=== PATIENT | male | born 1945 | race Caucasian/White ===

== ENCOUNTER 2019-04-10 13:21 | Day surgery (SDC) | payer MEDICARE ==
--- NOTE | 2019-04-10 08:12 | History and Physical - [facility] ---
CHIEF COMPLAINT/HISTORY OF CHIEF COMPLAINT: This patient presents with a history of an intractable lumbar radiculopathy with lumbar spinal stenosis and neurogenic intermittent claudication. His treatment history has been extensive. Physical therapy, biomechanical treatments, and pain clinic treatments have not helped. Surgical evaluation in the past has suggested no surgery. He has had several years of unsuccessful treatments without relief. His diagnostics showed diffuse spondylitic change with lumbar spinal stenosis at L3-L4 and L4-L5. His symptom pattern includes lower extremity pain which is relieved by forward flexing and sitting. Due to the failure of therapy he is here for interspinal spacer placement at L3-L4 and L4-L5. PAST MEDICAL HISTORY: Hypertension, cardiovascular disease, cardiac arrhythmia, and hypothyroidism. PAST SURGICAL HISTORY: None given. MEDICATIONS ON ADMISSION: List to be provided. ALLERGIES: PENICILLIN. FAMILY/PSYCHOSOCIAL HISTORY: None given. SYSTEMS REVIEW: The patient is appropriate in no acute distress. The remainder of the systems review is noted. PHYSICAL EXAMINATION: Height is 6'1", weight is 200 pounds. No vital signs. HEENT: Within normal limits. LUNGS: Clear. HEART: Rapid and regular. ABDOMEN: Nontender. MUSCULOSKELETAL: Examination of the musculoskeletal system shows pain and tenderness in the lower extremities. Mild motor and sensory abnormalities. No assistive device used for ambulation. NEUROLOGIC: Cranial nerves are intact. IMPRESSION: 1. LUMBAR RADICULOPATHY, ICD-10 CODE M54.16 AND M54.17. 2. LUMBAR SPINAL STENOSIS WITH NEUROGENIC INTERMITTENT CLAUDICATION, ICD-10 CODE M48.062. PLAN: The patient is here on an outpatient basis for interspinal spacer by Verteflex at L3-L4 and L4-L5. The potential risks, side effects and complications have all been reviewed and discussed. The patient understands and agrees. He has been put in contact with a clinical specialist from the tool machine set up operator and was also explained the procedure. cc: Dr. Andrew Rob JOB NUMBER: [id number] MTDD
[~2019-04-10 13:21] MED LIST: ACETAMINOPHEN 1,000 MG/100 ML BTL IVPB ONE; CLINDAMYCIN 600MG/50ML PREMIX 600 MG/50 ML BAG IVPB ONE; FAMOTIDINE 20MG TABLET PO ONE; MECLIZINE 25 MG TABLET PO ONE; METOCLOPRAMIDE 10 MG TABLET PO ONE
[2019-04-10] MEDS ORDERED: FENTANYL PF 100MCG/2ML VIAL IV ONE (13:22)
[2019-04-10] MEDS ORDERED: LIDOCAINE 2% MDV (20MG/ML) 20ML VIAL IV ONE (13:22)
[2019-04-10] MEDS ORDERED: PHENYLEPHRINE HCL 10 MG/ML VIAL IVP ONE (13:22)
[2019-04-10] MEDS ORDERED: PROPOFOL 10 MG/ML VIAL IV ONE (13:22)
[2019-04-10] MEDS ORDERED: MIDAZOLAM HCL 2MG/2ML VIAL IV ONE (13:22)
[2019-04-10 14:18] LABS: INR 1.2; PARTIAL THROMBOPLASTIN TIME 26.8 SECONDS (24.5-39.1)
[2019-04-10] MEDS ORDERED: RINGERS SOLUTION,LACTATED 1,000 ML IV ONE (14:40)
[2019-04-10] MEDS ORDERED: 0.9 % SODIUM CHLORIDE 1000ML 1,000 ML IV ONE ×2 (14:40→16:45)
[2019-04-10] MEDS ORDERED: DEXTROSE 50 % IVP 50 ML DISP.SYRIN IVP ONE (15:43)
[2019-04-10] MEDS ORDERED: Clindamycin 600mg vial 150 MG/ML VIAL IR ONE (16:17)
--- NOTE | 2019-04-11 11:02 | Operative Note - [facility] ---
DATE OF SURGERY: 04/10/2019 PREOPERATIVE DIAGNOSIS: 1. LUMBAR RADICULOPATHY, ICD-10 CODE M54.16 AND M54.17. 2. LUMBAR SPINAL STENOSIS WITH NEUROGENIC INTERMITTENT CLAUDICATION, ICD-10 CODE M48.062. OPERATION: 1. FLUOROSCOPICALLY GUIDED PLACEMENT OF INTERSPINOUS PROCESS SPACER - VERTEFLEX AT L3-L4. 2. FLUOROSCOPICALLY GUIDED PLACEMENT OF INTERSPINOUS SPACER - VERTEFLEX AT L4- L5. SURGEON: Daryl Burt D.O. ANESTHESIA: Local sedation. ANESTHESIA PROVIDER: Anish Torres CRNA INDICATION: This patient presents with history of lumbar radiculopathy and neurogenic claudication. His lumbar spinal images with MRI show spinal stenosis moderate severe at L3-L4 and L4-L5. Due to the failure of therapy over a number of years he is here for the placement of interspinous spacers at L3-L4 and L4- L5. PROCEDURE: Intravenous line, vital sign monitoring, IV sedation, prepped and draped, sterile technique. The patient was positioned prone. Sterile prep, sterile technique. On AP and lateral imaging the spinal interspace between the processes of L4 and L5 were marked, infiltrated with local, two separate introducers were positioned between the spinous process. A dilator was then used to separate and distract the spinous processes at L4-L5. A debridement tool was then used to clear the space posterior to the lamina. A #12 Verteflex interspinous spacer was then inserted using AP and lateral imaging and then expanded between the spinous processes of L4-L5 and L5-S1. The device taxi cab driver was removed. Under imaging the interspace between the spinous processes at L3- L4 was infiltrated, an incision made, and then using separate dilators the spinous process between L3-L4 and L4-L5 were , a dilator was used to distract the spinous processes and a debrider was then used to clear the tissue between and above this lamina between the spinous processes. An interspinal spacer - Verteflex 12 was then inserted. A #14 interspinal spacer - Verteflex was then placed at L3-L4 with AP and lateral images, the device was opened and then tapped into place. The device was removed. Interspinal spacer at L3-L4 and L4-L5 was performed without incident. Irrigation performed. A 2-0 Vicryl was used to close the fascial plane and maryann to close the skin. He tolerated the procedure without difficulty. There was no appreciable blood loss. He was transported to the Recovery Room stable. We will monitor and evaluate. DISCHARGE INSTRUCTIONS: 1. The sites are to remain clean and dry. No showering or bathing in any way that would disrupt the dressings. He has maryann which will be removed at his first evaluation. 2. Standard medications resumed including the antibiotic Levaquin 500 mg once a day for fourteen days. 3. A medication for pain control [place] has been provided for 7-10 days. 4. Office to contact the patient in 12-24 hours to set up a time in 7-10 days for us to evaluate the sites, until then he is to keep his activities low as per the restrictions for six weeks. All other instructions were provided. Numbers to contact if problems given. He will be discharged. JOB NUMBER: [id number] MTDD
--- NOTE | 2019-04-11 14:37 | RADIOLOGY REPORT ---
EXAMINATION: Lumbar Spine Single View EXAM DATE: 04/10/2019 6:04 PM TECHNIQUE: Lateral view INDICATION: S/P VERTIFLEX PLACEMENT 2 LEVELS COMPARISON: None ENCOUNTER: Initial FINDINGS: Spinous process fixation devices at the L3-L4 and L4-L5 levels. Mild lumbar dextroscoliosis. No acute fracture. Unremarkable soft tissues. IMPRESSION: Status post spinous process fixation. Dictated by: Latrice Abraham MD on 04/11/2019 2:33 PM. .
== END 2019-04-10 18:40 | disposition home or self-care (01) ==
LOC: SUR 13:21
PROVIDERS: ATTEND Pain Medicine Interventional Pain Medicine
DX: M54.16 Radiculopathy, lumbar region (principal); M54.17 Radiculopathy, lumbosacral region; Z79.01 Long term (current) use of anticoagulants; Z79.4 Long term (current) use of insulin; I10 Essential (primary) hypertension; E78.00 Pure hypercholesterolemia, unspecified; E03.9 Hypothyroidism, unspecified; I25.10 Atherosclerotic heart disease of native coronary artery without angina pectoris; I25.2 Old myocardial infarction; I45.10 Unspecified right bundle-branch block; I73.9 Peripheral vascular disease, unspecified; Z95.5 Presence of coronary angioplasty implant and graft
CPT/HCPCS: 36416; 72020; 82948; 85610; 85730; C1821; J2370; J7030; J7120